=== PATIENT | male | born 1960 | race Caucasian/White ===

== ENCOUNTER 2016-07-27 10:10 | Day surgery (SDC) | payer BC ==
[2016-07-19 16:32] VITALS: BMI 31.0
[~2016-07-27] VITALS: Ht 172.7 cm; Wt 91.8 kg
[~2016-07-27 10:10] MED LIST: ASPEC81 PO; ATROPINE SULFATE 0.1 MG/ML 5ML SYR IV PRN; CEFAZOLIN 2000 MG/60 ML D5W IV SCH; EpHEDrine SULFATE INJ 50 MG/ML AMP IV PRN; FENTANYL CITRATE INJ 50 MCG/1 ML 2 ML VIAL IV PRN; HYDROmorphone INJ 1 MG/ML SYR IV PRN; LACTATED RINGER'S 1000ML 1,000 ML IV SCH; ONDANSETRON INJ 2 MG/ML 2 ML VIAL IV PRN; SIMV20TA2 PO
[2016-07-27 10:25] VITALS: BP 143/86; PULSE 73; TEMP 36.6; O2SAT 97; Ht 172.7 cm; Wt 91.8 kg
[2016-07-27] MEDS ORDERED: ACET-1256 PO (10:34)
[2016-07-27 10:38] LABS: HEMATOCRIT 52.2 % (42-52); MEAN CELL VOLUME 87.4 fL (80-100); MEAN CORPUSCULAR HEMOGLOBIN 29.1 pg (25-34); PLATELET COUNT 257 K/uL (130-400); RED BLOOD COUNT 5.97 M/uL (4.7-6.1); WHITE BLOOD COUNT 11.19 K/uL (4.8-10.8)
[2016-07-27 10:39] LABS: MEAN CORPUSCULAR HGB CONC 33.3 g/dl (32-36)
[2016-07-27] MEDS ORDERED: MIDAZOLAM HCL 1 MG/ML 2ML VIAL ONE (10:40)
[2016-07-27] MEDS ORDERED: LIDOCAINE HCL 2% 2 ML VIAL (20MG/ML) ONE (10:40)
[2016-07-27] MEDS ORDERED: PROPOFOL IV EMULSION 10 MG/ML 20 ML VIAL IV ONE (10:40)
[2016-07-27] MEDS ORDERED: DEXAMETHASONE SOD INJ 4 MG/ML VIAL ONE (10:40)
[2016-07-27] MEDS ORDERED: ONDANSETRON INJ 2 MG/ML 2 ML VIAL ONE (10:40)
[2016-07-27] MEDS ORDERED: FENTANYL CITRATE INJ 50 MCG/1 ML 2 ML VIAL ONE (10:40)
[2016-07-27] MEDS ORDERED: CONRAY 30% 150ML BOTTLE ONE (11:04)
--- NOTE | 2016-07-27 11:17 | History & Physical Bridge Note ---
H&P Re-Evaluation Bridge Note: I have examined the patient, reviewed the History & Physical and in the interval since the performance of the History & Physical I have noted the following changes of clinical significance: No changes noted
[2016-07-27] MEDS ORDERED: GLYCOPYRROLATE INJ 0.2 MG/ML VIAL ONE (11:37)
[2016-07-27] MEDS ORDERED: BELLADONNA/OPIUM SUPP 60 MG SUPP PR ONE (11:37)
[2016-07-27] MEDS ORDERED: EpHEDrine SULFATE 50MG/5ML SYR ONE (11:38)
[2016-07-27] MEDS ORDERED: KETOROLAC TROMETHAMINE 30 MG/ML VIAL ONE (11:39)
--- NOTE | 2016-07-27 12:01 | [facility] Operative Report ---
Operative Report Operative Date July 27, 2016. Pre-Operative Diagnosis Left kidney stone Post-Operative Diagnosis same plus small caliber ureter Procedure(s) Performed cysto left stent placement, left abbreviated ureteroscopy Surgeon Dr. Kristyn Washington Picker / Packer Surgeon(s) None Estimated Blood Loss 3 mL Findings small UO, small caliber left ureter Fluids 600mL Specimens No pathology specimens per surgeon Drains 6 fr 26 centimeter double J stent Anesthesia LMA Complication(s) None Disposition Recovery Room / PACU Indications large suspected uric acid kidney stone he tried and was unable to tolerate outpatient urinary alkalinization therapy 2 different forms. He now presents for laser treatment of his large left kidney stone Description of Procedure Patient was given general LMA anesthesia and placed in lithotomy position. His genitals were prepped and draped in sterile fashion. Time out held with team. I placed a 21 fr rigid cystoscope to bladder. The urethra is unremarkable. The prostate is medium and the bladder neck is high. The bladder is normal and the UOs are in normal location but very small round shape. I placed a stiff wire up left ureter to kidney. UO is not much bigger than wire. I removed scope and used a dual lumen to calibrate the tight UO. I placed a second wire. I passed a flexible ureteroscope over the wire into left mid ureter. I passed scope another 3 inches proximal under vision. the ureter is then too small to pass proximal. I switched the scope onto the stiff wire and tried again, but scope cannot pass the upper ureter to kidney. I removed scope. I placed a 26 centimeter 6 Fr double J stent easily. I left bladder empty and concluded case. I placed a belladonna and opium suppository for post-op pain. He transferred to recovery under my escort, in stable condition. Plan: Home today Pyridium for dysuria x 3 days flomax daily oral pain meds as needed repeat ureteroscopy in 7-10 days ASA 2 clean contaminated case 33 seconds fluoro ancef antibiotic cardiopulmonary technician and eeg tech I attest to the content of the Intraoperative Record and any orders documented therein. Any exceptions are noted below.
[2016-07-27] MEDS ORDERED: PHEN-775 PO (12:07)
[2016-07-27] MEDS ORDERED: OXYC-57 PO (12:07)
[2016-07-27] MEDS ORDERED: TAMS0.4C38 PO (12:07)
--- NOTE | 2016-07-27 12:09 | Discharge Instructions ---
Discharge Instructions Date of Service July 27, 2016. Admission Reason for Admission: Left Kidney Stone Discharge Discharge Diagnosis / Problem: left kidney stone Discharge Goals Goal(s): Improve disease control Activity Recommendations Activity Limitations: resume your previous activity Lifting Limitations: none Exercise/Sports Limitations: none May Resume Sexual Activity: when tolerated Shower/Bathe: no limitations Driving or Machine Use: resume 1 day after discharge . Instructions / Follow-Up Instructions / Follow-Up urine may be bloody until stent is removed drink water with a splash of lemon juice several times per day take pyridium as needed for burning with urination take tamsulosin daily to ease stent pain use ibuprofen for mild to moderate pain and narcotic only for severe pain Discharge Diet Recommended Diet: Regular Diet Fluid Restriction: None Procedures Procedures Performed: Cystoscopy, Left Ureteral stent placement Pending Studies Studies pending at discharge: no Medical Emergencies . Who to Call and When: Medical Emergencies: If at any time you feel your situation is an emergency, please call 911 immediately. . Non-Emergent Contact Non-Emergency issues call your: Urologist ([phone]) Call Non-Emergent contact if: temperature is above 100.5, your pain is not controlled . . "Provider Documentation" section prepared by Kristyn Washington. . VTE Core Measure Inpt VTE Proph given/why not?: SCD's [place] Drug Monitoring Program Search Results: patient reviewed within database, no issues identified
--- NOTE | 2016-07-27 12:14 | DIAGNOSTIC IMAGING REPORT ---
KUB HISTORY: LEFT LASER/LITHO STENT PLACEMENT FLUOROSCOPY TIME: 31 seconds. FINDINGS: 5 fluoroscopic spot images were submitted for review. Initial images demonstrate a catheter within the left ureter placed in a retrograde fashion. This is followed by placement of a left ureteral stent. Only the distal portion of the stent is identified and appears to be in good position. IMPRESSION: Fluoroscopy provided for left ureteral stent placement. Electronically signed by: Nuno Rodríguez M.D. 07/27/2016 12:13 PM Dictated Date/Time: 07/27/2016 12:12 PM
--- NOTE | 2016-07-27 12:38 | Anesthesiology Progress Note ---
Anesthesia Post Op Note Date & Time July 27, 2016 at 12:38 Vital Signs Pain Intensity: 0 Vital Signs Past 12 Hours Date Time Temp Pulse Resp B/P Pulse Ox O2 Delivery O2 Flow Rate FiO2 07/27/16 12:25 95 14 122/89 99 Mask 10 07/27/16 12:15 97 14 113/92 99 Mask 10 07/27/16 12:05 101 16 125/86 97 Mask 10 07/27/16 11:59 36.3 107 16 128/90 97 Mask 10 07/27/16 10:25 36.6 73 18 143/86 97 Room Air Notes Mental Status: alert / awake / arousable, participated in evaluation Pt Amnestic to Procedure: Yes Nausea / Vomiting: adequately controlled Pain: adequately controlled Airway Patency, RR, SpO2: stable & adequate BP & HR: stable & adequate Hydration State: stable & adequate Anesthetic Complications: no major complications apparent
[2016-07-27 12:45] VITALS: BP 139/90; PULSE 94; TEMP 36.5; O2SAT 95
[2016-07-27 13:15] VITALS: BP_SYST 140; BP_SYST 144; BP_DIAS 93; PULSE 86; PULSE 94; TEMP 36.5; O2SAT 95
[2016-07-27 13:45] VITALS: BP 140/93; PULSE 94; TEMP 36.5; O2SAT 95
[2016-08-03] MEDS ORDERED: IBUP-1050 PO (07:23)
[2016-08-03] MEDS ORDERED: PHEN-775 PO (11:08)
[2016-08-03] MEDS ORDERED: OXYC-57 PO (11:08)
[2017-01-31] MEDS ORDERED: NICO1KIT TOP (09:11)
[2017-01-31] MEDS ORDERED: NTRSL3 UT (10:22)
== END 2016-07-27 13:57 | disposition home or self-care (01) ==
LOC: C.ACU 10:10
PROVIDERS: ATTEND Urology
DX: N20.0 Calculus of kidney (principal); R79.82 Elevated C-reactive protein (CRP); K21.9 Gastro-esophageal reflux disease without esophagitis; E78.5 Hyperlipidemia, unspecified; F17.200 Nicotine dependence, unspecified, uncomplicated; F43.21 Adjustment disorder with depressed mood; Z82.49 Family history of ischemic heart disease and other diseases of the circulatory system; Z79.899 Other long term (current) drug therapy

== ENCOUNTER → 2017-01-31 | Day surgery (SDC) | payer BC ==
[~2017-01-31] VITALS: Ht 172.7 cm; Wt 89.5 kg
[~2017-01-31] MED LIST changes: +ACET-1256 PO; +ATORVASTATIN 40 MG TAB PO ONE; +ATORVASTATIN 40 MG TAB PO SCH; -ATROPINE SULFATE 0.1 MG/ML 5ML SYR IV PRN; -CEFAZOLIN 2000 MG/60 ML D5W IV SCH; -EpHEDrine SULFATE INJ 50 MG/ML AMP IV PRN; -FENTANYL CITRATE INJ 50 MCG/1 ML 2 ML VIAL IV PRN; +FENTANYL CITRATE INJ 50 MCG/1 ML 2 ML VIAL ONE; -HYDROmorphone INJ 1 MG/ML SYR IV PRN; +IBUP-1050 PO; -LACTATED RINGER'S 1000ML 1,000 ML IV SCH; +METOPROLOL TARTRATE 25 MG TAB PO ONE; +METOPROLOL TARTRATE 25 MG TAB PO SCH; +MIDAZOLAM HCL 1 MG/ML 2ML VIAL ONE; +NICO1KIT TOP; +NITROGLYCERIN 2% OINTMENT 30GM TUBE ONE; +NITROGLYCERIN OINT 2% 1GM PACKET EXT SCH; +NTRSL3 UT; -ONDANSETRON INJ 2 MG/ML 2 ML VIAL IV PRN; +OXYC-57 PO
[2017-01-31 10:15] VITALS: BP 149/85; PULSE 79; TEMP 36.6; O2SAT 98
[2017-01-31 10:19] VITALS: Ht 172.7 cm; Wt 89.5 kg
--- NOTE | 2017-01-31 12:22 | Procedure Note ---
Pre-Mod Sedation Assessment General Date of Moderate Sedation: Jan 31, 2017. Vital Signs: Vital Signs Past 12 Hours Date Time Temp Pulse Resp B/P (MAP) Pulse Ox O2 Delivery O2 Flow Rate FiO2 01/31/17 12:05 76 16 142/91 (108) 98 Room Air 01/31/17 10:15 36.6 79 16 149/85 98 Room Air Review Cardiovascular: regular rate, rhythm, no edema, no gallop Abdomen: normal bowel sounds, non tender, soft Lungs: chest non-tender, lungs clear, normal breath sounds Pre-Sedation Airway Assessment Oral Cavity: Dentures Short Thick Neck: No Hx of Sleep Apnea: No Smoking Status: Current Every Day Smoker Mallampati Classification: Class III ASA Classification: Class III Procedure Planning Contraindications-for Mod Sed: None Yes Notes The planned sedation has been discussed with the patient and consent obtained. I have identified the patient, determined the appropriateness of sedation and have assessed the patient immediately prior to the procedure. All medicine(s) and interventions are by my order.
--- NOTE | 2017-01-31 12:23 | Procedure Note ---
Post-Mod Sedation Assessment General Date of Moderate Sedation Jan 31, 2017. Vital Signs: Vital Signs Past 12 Hours Date Time Temp Pulse Resp B/P (MAP) Pulse Ox O2 Delivery O2 Flow Rate FiO2 01/31/17 12:05 76 16 142/91 (108) 98 Room Air 01/31/17 10:15 36.6 79 16 149/85 98 Room Air Review - Discharge Criteria Vital Signs Stable: Yes Alert/Oriented/Conversant: Yes Returned to Baseline Mental St: Yes Nausea Absent/Minimal: Yes Pain/Discomfort/Absent/Minimal: Yes Normal/Baseline Respirations: Yes Active Bleeding?: No Pt Received D/C Instructions: N/A Prescriptions Given: None Specific Proced. D/C Criteria Distal Pulses Present (Cardiac: Yes Groin site assessed-Card Cath: Yes Voided Prior To Discharge: N/A Discharged Patients Adult Escort/Transportation: N/A
--- NOTE | 2017-01-31 12:32 | Cardiac Catheterization ---
Procedure Note Procedure Date Jan 31, 2017. Pre-Procedure Diagnosis Angina, Positive Stress Test, CAD AUC Score 8 Post-Procedure Diagnosis Severe CAD Procedure(s) Performed Coronary Angiography, Left Heart Cath [employer] Front Desk Attendant Dr. Thornton Coconut Boiler(s) Kellie PILE DRIVING TECHNICIAN Estimated Blood Loss 5cc Medication(s) Fentanyl, Versed, Lidocaine 1% Summary of Findings Severe distal Left main, proximal ramus, mid RCA, and mid PDA Hemodynamics Rest Ao: 136/61/93 Final Ao: 121/61/86 LV: 122/-5/11 Recommendations CABG Specimens None Radiation Exposure (mGy) 280 Contrast (mls) 30 Anesthesia Moderate sedation. Start 1138. End Procedural Complication(s) None Disposition Glass Mould Cleaner Holding/Recovery ACC Data Cardiac Status Clinical evaluation leading to the procedure CAD Presntation: Unstable angina, Positive Stress Test Anginal Classification: CCS III Heart Failure: No Cardiogenic Shock w/in 24Hrs: No Cardiac Arrest w/in 24Hrs: No Imaging studies past 6 months: Yes Stress studies past 6 months: Yes Stress Echocardiogram: Yes - Positive, Risk/Extent of Ischemia (High) Coronary Anatomy Dominant: Right Left Main (% Stenosis): Distal (80% hazy ) LAD (% Stenosis): Mid (40%) Circumflex (% Stenosis): Mid (20%) OM1 (% Stenosis): Normal OM2 (% Stenosis): Normal RCA (% Stenosis): Mid (75%) R PDA (% Stenosis): Mid (70%) R PL1 (% Stenosis): Mid (mild luminal irregularities 10-20%) Ramus (% Stenosis): Proximal (80%) Diagnostic Status: Elective Closure Device Percutaneous Entry Location: Femoral Recommendations: CABG Intraprocedure Events Significant Dissection: No Perforation: No
[2017-01-31 15:00] VITALS: BP 110/76; PULSE 68; O2SAT 96
== END | disposition home or self-care (01) ==
LOC: C.CATH 09:49
PROVIDERS: ATTEND Internal Medicine Cardiovascular Disease
DX: I25.10 Atherosclerotic heart disease of native coronary artery without angina pectoris (principal); I20.0 Unstable angina; F17.210 Nicotine dependence, cigarettes, uncomplicated; E78.5 Hyperlipidemia, unspecified; Z82.49 Family history of ischemic heart disease and other diseases of the circulatory system; R94.39 Abnormal result of other cardiovascular function study